=== PATIENT | male | born 1980 | race Caucasian/White ===

== ENCOUNTER 2020-04-20 12:43 | Emergency (ER) | payer SELFPAY ==
[~2020-04-20] VITALS: Ht 170.2 cm; Wt 87.1 kg
[2020-04-20 13:18] VITALS: BP 115/87; Ht 170.2 cm; Wt 87.1 kg
== END 2020-04-20 14:33 | disposition left against medical advice (07) ==
LOC: ED 12:43
DX: Z53.21 Procedure and treatment not carried out due to patient leaving prior to being seen by health care provider (principal)

== ENCOUNTER 2020-06-13 04:48 | Emergency (ER) | payer SELFPAY ==
[~2020-06-13] VITALS: Ht 170.2 cm; Wt 85.3 kg
[2020-06-13 04:57] VITALS: Ht 170.2 cm; Wt 85.3 kg
[2020-06-13 06:06] VITALS: BP 143/86
== END 2020-06-13 06:06 | disposition home or self-care (01) ==
LOC: ED 04:48
DX: S52.91XA Unspecified fracture of right forearm, initial encounter for closed fracture (principal); S61.412A Laceration without foreign body of left hand, initial encounter; S50.812A Abrasion of left forearm, initial encounter; S50.811A Abrasion of right forearm, initial encounter; V87.8XXA Person injured in other specified noncollision transport accidents involving motor vehicle (traffic), initial encounter; Y93.89 Activity, other specified; Y92.89 Other specified places as the place of occurrence of the external cause; Y99.8 Other external cause status
CPT/HCPCS: A4570; J2001